=== PATIENT | male | born 1990 | race Caucasian/White ===

== ENCOUNTER 2019-04-20 10:13 | Emergency (ER) | payer SELFPAY ==
[~2019-04-20] VITALS: Wt 159.0 kg
[2019-04-20 10:29] VITALS: BP 165/89; PULSE 99; RESP 18
[2019-04-20] MEDS ORDERED: HYDROCODONE/APAP (10/325) TAB PO ONE (11:30)
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
[2019-04-20] MEDS ORDERED: HYDR-4011 PO (14:01)
[2019-04-20] MEDS ORDERED: IBUP-1561 PO (14:01)
[2019-04-20] MEDS ORDERED: CIPR500T4 PO (15:32)
== END 2019-04-20 15:59 | disposition home or self-care (01) ==
LOC: FTE 10:13
DX: N30.01 Acute cystitis with hematuria (principal); S39.012A Strain of muscle, fascia and tendon of lower back, initial encounter; E11.9 Type 2 diabetes mellitus without complications; V49.40XA Driver injured in collision with unspecified motor vehicles in traffic accident, initial encounter
CPT/HCPCS: 71045; 71100; 72128; 72131; 73090; 81001